=== PATIENT | female | born 2000 | race Caucasian/White ===

== ENCOUNTER 2023-09-02 22:20 | Inpatient (IN) | payer BC ==
[2023-09-02] MEDS ORDERED: NIFEdipine 10 MG Cap PO ONE (22:52)
[2023-09-02] MEDS ORDERED: Magnesium Sulfate/Water 4 GM in Premix Bag 1 BAG IV ONE (23:00)
[2023-09-02 23:13] LABS: PROTEIN CREATININE RATIO,URINE 386.8 mg/g (0-149); PROTEIN,URINE RANDOM 26.3 mg/dL (0.0-11.8)
[2023-09-02] MEDS ORDERED: Sodium Chloride 0.9% 10 ML Syringe FLUSH PRN (23:24)
[2023-09-02] MEDS ORDERED: Calcium Gluconate 10% 1 GM/10 ML SDV IV PRN (23:24)
[2023-09-02] MEDS: Magnesium Sulfate/Water 40 GM/1,000 ML BAG IV SCH (23:59)
[2023-09-03] MEDS: Ibuprofen 600 MG Tab PO PRN ×3 (03:17→23:00)
[2023-09-03] MEDS: Labetalol 100 MG Tab PO SCH ×3 (03:21→18:50)
[2023-09-03 05:47] LABS: HEMATOCRIT 31.6 % (37.0-47.0); HEMOGLOBIN 10.6 gm/dl (12.0-16.0); MEAN CORPUSCULAR HEMOGLOBIN 29.5 pg (28.0-32.0); MEAN CORPUSCULAR HGB CONC 33.5 g/dl (32.0-36.0); MEAN PLATELET VOLUME 9.7 fl (9.4-12.3); PLATELET COUNT,PLT 284 K/mm3 (150-400); RED BLOOD CELL COUNT 3.59 M/mm3 (4.10-5.30)
[2023-09-03 06:09] LABS: A/G RATIO 0.7 (1-2); ALBUMIN 2.6 g/dl (3.4-5.0); ANION GAP 14.9 (5-15); BILIRUBIN TOTAL 0.3 mg/dL (0.2-1.0); CALCIUM 7.5 mg/dL (8.5-10.1); CREATININE 0.5 mg/dL (0.55-1.02); EST CRCL DRUG DOSING (CG) 156.12 mL/min; POTASSIUM,K 2.9 mEq/L (3.5-5.1); PROTEIN TOTAL,TP 6.4 g/dl (6.4-8.2)
[2023-09-03] MEDS ORDERED: Potassium Chloride 20 MEQ Tab.ER PO SCH ×2 (07:00→09:00)
[2023-09-03] MEDS ORDERED: Labetalol 100 MG Tab PO SCH (09:00)
[2023-09-03] MEDS: Sodium Chloride 0.9% 10 ML Syringe FLUSH SCH ×2 (14:57→23:01)
[2023-09-03] MEDS: Magnesium Sulfate/Water 40 GM/1,000 ML BAG IV SCH (19:52)
[2023-09-04] MEDS: Labetalol 100 MG Tab PO SCH ×3 (02:34→19:47)
[2023-09-04 06:21] LABS: BASOPHILS ABSOLUTE AUTO 0.1 K/mm3 (0.0-0.2); BASOPHILS PERCENT AUTO 0.5 % (0.0-1.0); EOSINOPHILS ABSOLUTE AUTO 0.2 K/mm3 (0.0-0.4); HEMATOCRIT 30.1 % (37.0-47.0); HEMOGLOBIN 10.1 gm/dl (12.0-16.0); IMMATURE GRAN ABSOLUTE AUTO 0.13 K/mm3 (0.00-0.05); IMMATURE GRAN PERCENT AUTO 1.3 % (0.0-0.4); LYMPHOCYTES ABSOLUTE AUTO 2.6 K/mm3 (1.0-4.8); LYMPHOCYTES PERCENT AUTO 25.8 % (24.0-44.0); MEAN CORPUSCULAR HEMOGLOBIN 29.4 pg (28.0-32.0); MEAN CORPUSCULAR HGB CONC 33.6 g/dl (32.0-36.0); MEAN CORPUSCULAR VOLUME 87.5 fl (83.0-99.0); MONOCYTES ABSOLUTE AUTO 0.7 K/mm3 (0.0-0.8); MONOCYTES PERCENT AUTO 7.4 % (0.0-8.0); NEUTROPHILS ABSOLUTE AUTO 6.3 K/mm3 (1.8-7.7); PLATELET COUNT,PLT 301 K/mm3 (150-400); RED BLOOD CELL COUNT 3.44 M/mm3 (4.10-5.30)
[2023-09-04 06:40] LABS: A/G RATIO 0.7 (1-2); ALBUMIN 2.5 g/dl (3.4-5.0); ANION GAP 12.6 (5-15); BILIRUBIN TOTAL 0.3 mg/dL (0.2-1.0); CREATININE 0.6 mg/dL (0.55-1.02); EST CRCL DRUG DOSING (CG) 130.1 mL/min; POTASSIUM,K 3.6 mEq/L (3.5-5.1); PROTEIN TOTAL,TP 6.2 g/dl (6.4-8.2)
[2023-09-04] MEDS: NIFEdipine 30 MG Tab.ER PO SCH ×2 (08:32→08:35)
[2023-09-04] MEDS: Ibuprofen 600 MG Tab PO PRN ×2 (08:33→21:03)
[2023-09-04] MEDS ORDERED: Potassium Chloride 20 MEQ Tab.ER PO SCH (09:00)
[2023-09-04] MEDS: Sodium Chloride 0.9% 10 ML Syringe FLUSH SCH (10:56)
[2023-09-04] MEDS ORDERED: hydrOXYzine HCl 50 MG Tab PO PRN (13:05)
[2023-09-04] MEDS ORDERED: hydrALAZINE 20 MG/ML SDV IVPUSH PRN (21:07)
[2023-09-05] MEDS: Labetalol 100 MG Tab PO SCH (03:14)
== END 2023-09-05 08:33 | disposition home or self-care (01) | DRG 561 ==
LOC: JD.OB 22:20
PROVIDERS: ADMIT Obstetrics & Gynecology; ATTEND Obstetrics & Gynecology
DX: O14.95 Unspecified pre-eclampsia, complicating the puerperium (principal); E87.6 Hypokalemia
CPT/HCPCS: 36415; 80053; 82570; 84156; 85025; 85027; 94760; A9270-GY; J0360; J3475